=== PATIENT | female | born 1970 | race Caucasian/White ===

== ENCOUNTER 2017-07-25 19:30 | Emergency (ER) | payer SELFPAY ==
[~2017-07-25] VITALS: Ht 167.6 cm; Wt 89.8 kg
[2017-07-25 19:45] VITALS: BP 133/78
== END 2017-07-26 07:50 | disposition left against medical advice (07) ==
LOC: ER 19:30 → EDBD 19:30 → ER 07-26 07:50
DX: F10.10 Alcohol abuse, uncomplicated (principal); Z53.21 Procedure and treatment not carried out due to patient leaving prior to being seen by health care provider